=== PATIENT | female | born 2000 | race Caucasian/White ===

== ENCOUNTER 2024-10-20 03:38 | Observation (INO) | payer OTHER ==
[2024-10-20] MEDS ORDERED: MORPHINE SULFATE 2 MG/ML SYRINGE ONE (04:26)
[2024-10-20] MEDS: LACTATED RINGERS SOLUTION 1,000 ML/1,000 ML INFUS.BAG IV SCH (04:41)
[2024-10-20] MEDS: morphine SULFATE 4 MG/ML VIAL IVPUSH ONE (04:41)
[2024-10-20 11:42] LABS: INR 1.22 (0.83-1.09); PROTHROMBIN TIME (PATIENT) 13.4 SEC (9.7-13.0)
[2024-10-20] MEDS: SODIUM CHLORIDE 1,000 ML IV STA (11:44)
[2024-10-20 14:41] VITALS: BMI 21.7
[2024-10-20] MEDS: DEXTROSE 5%-0.45% SALINE 1,000 ML IV SCH (14:42)
[2024-10-20] MEDS: ACETAMINOPHEN 1000 MG/100 ML BAG IVPB PRN (15:35)
[2024-10-21 09:28] LABS: ABSOLUTE IMMATURE GRANULOCYTES 0.01 x10^3/uL (0.0-0.031); BASOPHILS # 0.03 x10^3/uL (0.01-0.08); EOSINOPHIL % 4.3 % (0.7-5.8); EOSINOPHILS # 0.16 x10^3/uL (0.04-0.36); HEMATOCRIT 34.3 % (34.1-44.9); HEMOGLOBIN 10.8 g/dL (11.2-15.7); MCHC 31.5 g/dl (32.2-35.5); MEAN CELL VOLUME 89.8 fl (79.4-94.8); MONOCYTE # 0.69 x10^3/uL (0.24-0.86); MONOCYTE % 18.6 % (4.7-12.5); PLATELET COUNT # 230 x10^3/uL (182-369); RDW 12.2 % (12.1-16.5)
[2024-10-21 09:47] LABS: POTASSIUM 3.5 mmol/L (3.5-5.1)
[2024-10-21 10:00] LABS: CALCIUM 8.1 mg/dL (8.5-10.1)
[2024-10-21 10:01] LABS: BLOOD UREA NITROGEN 6.1 mg/dL (7-18); MAGNESIUM 1.7 mg/dL (1.8-2.4)
[2024-10-21 10:04] LABS: CREATININE 0.5 mg/dL (0.55-1.3); PHOSPHOROUS 2.9 mg/dL (2.5-4.9)
[2024-10-21] MEDS ORDERED: ROCURONIUM BROMIDE 50 MG/5 ML SYRINGE ONE (12:20)
[2024-10-21] MEDS ORDERED: SUCCINYLCHOLINE CHLORIDE 200 MG/10 ML SYRINGE ONE (12:20)
[2024-10-21] MEDS ORDERED: PROPOFOL 20 ML ONE (12:20)
[2024-10-21] MEDS ORDERED: MIDAZOLAM HCL 2 MG/2 ML SINGLE DOSE VIAL ONE (12:21)
[2024-10-21] MEDS ORDERED: cefOXitin SODIUM 2 GM VIAL (RESTRICTED TO ID) IVPB ONE (12:34)
[2024-10-21] MEDS ORDERED: ACETAMINOPHEN INJECTION 100 ML ONE (12:36)
[2024-10-21] MEDS: BUPIVACAINE HCL/PF 0.25% (2.5MG/ML) 10 ML VIAL IJ ONE (12:43)
[2024-10-21] MEDS ORDERED: NEOSTIGMINE METHYLSULFATE 0.5 MG/1 ML - 10 ML MDV ONE (13:13)
[2024-10-21] MEDS ORDERED: ONDANSETRON 4 MG/2 ML VIAL IVPUSH PRN (13:48)
[2024-10-21] MEDS: DOCUSATE SODIUM 100 MG CAPSULE (FP) PO SCH (14:00)
[2024-10-21] MEDS: LACTATED RINGERS SOLUTION 1,000 ML IV SCH (14:02)
[2024-10-21 15:21] VITALS: RESP 18
[2024-10-21] MEDS: oxyCODONE HCL 5 MG TABLET PO PRN ×2 (15:55→20:06)
[2024-10-21] MEDS: LACTATED RINGERS SOLUTION 1,000 ML/1,000 ML INFUS.BAG IV SCH (17:01)
[2024-10-21] MEDS: ACETAMINOPHEN 1000 MG/100 ML BAG IVPB SCH (19:52)
[2024-10-21] MEDS: morphine SULFATE 4 MG/ML VIAL IVPUSH ONE (22:27)
[2024-10-21] MEDS ORDERED: SIMETHICONE 80 MG TAB.CHEW (FP) PO ONE (22:37)
[2024-10-22] MEDS: MAGNESIUM 2GM/50ML STERILE WATER IVPB IVPB ONE (01:51)
[2024-10-22] MEDS: SIMETHICONE 80 MG TAB.CHEW (FP) PO ONE (02:14)
[2024-10-22] MEDS: morphine SULFATE 4 MG/ML VIAL IVPUSH ONE ×2 (02:43→08:09)
[2024-10-22] MEDS: KETOROLAC TROMETHAMINE 15 MG/ML VIAL IVPUSH PRN (07:36)
[2024-10-22] MEDS ORDERED: ACETAMINOPHEN 500 MG TABLET (FP) PO PRN (08:00)
[2024-10-22] MEDS ORDERED: oxyCODONE HCL 5 MG TABLET PO PRN ×3 (09:06→09:43)
[2024-10-22] MEDS ORDERED: morphine CARPU-JECT 2 MG/1 ML DISP.SYRIN IVPUSH PRN (09:07)
[2024-10-22] MEDS ORDERED: morphine SULFATE 4 MG/ML VIAL IVPUSH PRN (09:12)
[2024-10-22] MEDS ORDERED: HYDROmorphone HCL CARPU-JECT 2 MG/1 ML DISP.SYRIN IVPB PRN (09:41)
[2024-10-22] MEDS ORDERED: ACETAMINOPHEN 500 MG TABLET (FP) PO SCH (09:45)
[2024-10-22 09:55] LABS: HEMOGLOBIN 10.8 g/dL (11.2-15.7); MCHC 31.8 g/dl (32.2-35.5); MEAN CELL VOLUME 89.5 fl (79.4-94.8); MEAN PLT VOLUME 9.2 fl (9.4-12.3); PLATELET COUNT # 258 x10^3/uL (182-369)
[2024-10-22 10:15] LABS: POTASSIUM 3.5 mmol/L (3.5-5.1)
[2024-10-22] MEDS: ACETAMINOPHEN 500 MG TABLET (FP) PO SCH (10:22)
[2024-10-22 10:28] LABS: BLOOD UREA NITROGEN 4.1 mg/dL (7-18); CALCIUM 8.5 mg/dL (8.5-10.1)
[2024-10-22 10:29] LABS: MAGNESIUM 1.9 mg/dL (1.8-2.4)
[2024-10-22 10:31] LABS: BILIRUBIN,TOTAL 0.4 mg/dL (0.2-1); TOT PROT 6.2 g/dl (6.4-8.2)
[2024-10-22 10:32] LABS: CREATININE 0.5 mg/dL (0.55-1.3); PHOSPHOROUS 2.9 mg/dL (2.5-4.9)
[2024-10-22] MEDS: KETOROLAC TROMETHAMINE 15 MG/ML VIAL IVPUSH SCH (12:06)
[2024-10-22] MEDS: morphine SULFATE 4 MG/ML VIAL IVPUSH PRN (14:49)
[2024-10-23 09:31] LABS: HEMATOCRIT 31.8 % (34.1-44.9); MCHC 31.4 g/dl (32.2-35.5); MEAN CELL VOLUME 91.9 fl (79.4-94.8); MEAN PLT VOLUME 9.3 fl (9.4-12.3); PLATELET COUNT # 197 x10^3/uL (182-369); RDW 12.4 % (12.1-16.5)
[2024-10-23 09:50] LABS: POTASSIUM 3.5 mmol/L (3.5-5.1)
[2024-10-23 10:01] LABS: ALBUMIN 2.8 g/dl (3.4-5.0); BLOOD UREA NITROGEN 7.2 mg/dL (7-18)
[2024-10-23 10:04] LABS: CREATININE 0.5 mg/dL (0.55-1.3)
[2024-10-23 10:06] LABS: BILIRUBIN,TOTAL 0.4 mg/dL (0.2-1); TOT PROT 5.6 g/dl (6.4-8.2)
[2024-10-23 14:47] VITALS: BP 101/65; PULSE 61; TEMP 98
== END 2024-10-23 14:55 | disposition home or self-care (01) ==
LOC: JER 03:38 → INTOOBSV 08:03 → JERBED 08:03 → UNDOADMOB 08:03 → JERBED 11:39 → J6S 12:49
PROVIDERS: ATTEND Student in an Organized Health Care Education/Training Program
PROC: 3E033NZ Introduction of Analgesics, Hypnotics, Sedatives into Peripheral Vein, Percutaneous Approach (ICD-10-PCS; 2024-10-20)
PROC: 3E0337Z Introduction of Electrolytic and Water Balance Substance into Peripheral Vein, Percutaneous Approach (ICD-10-PCS; 2024-10-20)
PROC: 3E0333Z Introduction of Anti-inflammatory into Peripheral Vein, Percutaneous Approach (ICD-10-PCS; 2024-10-20)
PROC: 0FT44ZZ Resection of Gallbladder, Percutaneous Endoscopic Approach (ICD-10-PCS; principal; 2024-10-21 12:41)
DX: K81.0 Acute cholecystitis (principal); I95.9 Hypotension, unspecified; R10.13 Epigastric pain
CPT/HCPCS: 36415; 74177-TC; 76705-TC; 80048; 80053; 81003; 83690; 83735; 84100; 84703; 85025; 85027; 85610; 86850; 86900; 86901; 87086; 88304-TC; 93005; 93010; 94760; 96361; 96374; 96375; 96376; 97116-GP; 97161-GP; 99282-25; 99285-25; G0378; J0131; Q9967